=== PATIENT | female | born 1955 | race Hispanic/Latino ===

== ENCOUNTER 2018-05-27 15:06 | Outpatient (CLI) | payer MEDICARE, MEDICAID | END 2018-05-27 15:07 | disposition home or self-care (01) | LOC: BICMAMMO 15:06 | PROVIDERS: ATTEND Nurse Practitioner Family | DX: Z12.31 Encounter for screening mammogram for malignant neoplasm of breast (principal) | CPT/HCPCS: 77063; 77067 ==

== ENCOUNTER 2020-05-21 13:09 | Outpatient (CLI) | payer MEDICARE, MEDICAID ==
--- NOTE | 2020-05-21 14:06 | MMO ---
Bilateral MAMMO Bilat Screen [facility]. CLINICAL HISTORY: Patient is 64 years old and is seen for screening. The patient has no family history of breast cancer. The patient has no personal history of cancer. VIEWS: The views performed were: bilateral craniocaudal with tomosynthesis; bilateral mediolateral oblique; and bilateral mediolateral oblique with tomosynthesis. FILMS COMPARED: The present examination has been compared to prior imaging studies performed at [facility] on 04/13/2017 and 05/27/2018, and at [facility] on 12/20/2014 and 04/09/2016. This study has been interpreted with the assistance of computer-aided detection. MAMMOGRAM FINDINGS: There are scattered fibroglandular densities. There are stable benign appearing calcifications seen in both breasts. There are no suspicious masses, suspicious calcifications, or new areas of architectural distortion. IMPRESSION: THERE IS NO MAMMOGRAPHIC EVIDENCE OF MALIGNANCY. A ROUTINE FOLLOW-UP MAMMOGRAM IN 1 YEAR IS RECOMMENDED. THE RESULTS OF THIS EXAM WERE SENT TO THE PATIENT. ACR BI-RADS Category 2 - Benign finding MAMMOGRAPHY NOTE: 1. A negative mammogram report should not delay a biopsy if a dominant of clinically suspicious mass is present. 2. Approximately 10% to 15% of breast cancers are not detected by mammography. 3. Adenosis and dense breasts may obscure an underlying neoplasm. Reported by: JORDI PINEDA MD Electonically Signed: [id number]
== END 2020-05-21 13:10 | disposition home or self-care (01) ==
LOC: BICMAMMO 13:09
PROVIDERS: ATTEND Nurse Practitioner Family
DX: Z12.31 Encounter for screening mammogram for malignant neoplasm of breast (principal)
CPT/HCPCS: 77063; 77067

== ENCOUNTER 2022-04-16 08:50 | Outpatient (CLI) | payer MEDICARE, MEDICAID | END 2022-04-16 08:51 | disposition home or self-care (01) | LOC: BICULT 08:50 | PROVIDERS: ATTEND Internal Medicine Nephrology | DX: I12.9 Hypertensive chronic kidney disease with stage 1 through stage 4 chronic kidney disease, or unspecified chronic kidney disease (principal); N18.30 Chronic kidney disease, stage 3 unspecified | CPT/HCPCS: 76770; 93975 ==

== ENCOUNTER 2022-07-10 07:44 | Inpatient (IN) | payer MEDICAID, MEDICARE, OTHER ==
[2022-07-10] MEDS ORDERED: Azithromycin 500 MG VIAL ONE ×2 (08:29→08:32)
[2022-07-10 08:43] LABS: #Eosinphils 0.1 thou/uL (0.0-0.7); #Lymphocytes 1.1 thou/uL (1.20-3.40); #Monocytes 1.1 thou/uL (0.11-0.59); %Basophils 0.3 % (0.0-1.0); %Eosinophils 1.1 % (0.0-10.0); %Lymphocytes 10.7 % (21.0-51.0); %Monocytes 10.4 % (0.0-10.0); %Neutrophils 77.5 % (42.0-75.0); Hemoglobin 13.4 g/dL (12.0-16.0); Mean Corpuscular HGB CONC 32.9 g/dL (32.0-36.0); Mean Corpuscular Hemoglobin 29.6 pg (27.0-31.0); Mean Corpuscular Volume 89.9 fL (78.0-98.0); Mean Platelet Volume 8.5 fL (7.4-10.4); Platelet Count 208 thou/uL (130-400); RBC Distribution Width 13.7 % (11.5-14.5); Red Blood Cell (RBC) Count 4.53 mill/uL (4.20-5.40); White Blood Cell (WBC) Count 10.4 thou/uL (4.8-10.8)
[2022-07-10 09:05] LABS: ALT (SGPT) 12 U/L (8-55); AST (SGOT) 15 U/L (5-34); Albumin 4.3 g/dL (3.4-4.8); Alkaline Phosphatase 150 U/L (40-110); Anion Gap 17 mmol/L (10-20); BUN (Urea Nitrogen) 38 mg/dL (9.8-20.1); Bilirubin, Total 1.1 mg/dL (0.2-1.2); CK (CPK) 136 U/L (29-168); Calc. Creatinine Clearance 0 mL/min (70-130); Calcium 9.6 mg/dL (7.8-10.44); Carbon Dioxide 28 mmol/L (23-31); Chloride 97 mmol/L (98-107); Estimated GFR 21; Globulin 4.1 g/dL (2.4-3.5); Glucose 165 mg/dL (80-115); Potassium 4.3 mmol/L (3.5-5.1); Protein, Total 8.4 g/dL (5.8-8.1); Sodium 138 mmol/L (136-145)
[2022-07-10] MEDS ORDERED: cefTRIAXone\\ROCEPHIN 1 GM VIAL ONE (09:25)
[2022-07-10 09:27] LABS: CKMB 0.5 ng/mL (0-6.6)
[2022-07-10] MEDS ORDERED: Lorazepam 1 MG TAB ONE (10:01)
[2022-07-10] MEDS ORDERED: Aspirin Chewable 81 MG TAB ONE (10:01)
[2022-07-10] MEDS ORDERED: Lorazepam 0.5 MG TAB ONE (10:01)
[2022-07-10 10:16] LABS: SARS-CoV-2 NAA Rapid Test DETECTED (NotDetected)
[2022-07-10] MEDS ORDERED: Guaifenesin DM 100-10/5 ML UDCUP PO PRN (11:21)
[2022-07-10] MEDS ORDERED: Dextrose 50% Abboject 50 ML SYRINGE SLOW IVP PRN (11:21)
[2022-07-10] MEDS ORDERED: Senokot S 8.6-50 MG TAB PO PRN (11:21)
[2022-07-10] MEDS ORDERED: Dextrose 5% in Water 1,000 ML IV PRN (11:21)
[2022-07-10] MEDS ORDERED: NOREPINEPHRINE 8 MG/250 ML-D5W 250 ML ONE (11:58)
[2022-07-10 12:04] LABS: Troponin I 0.052 ng/mL (< 0.028)
[2022-07-10] MEDS ORDERED: NOREPINEPHRINE 8 MG/250 ML-D5W 250 ML IVPB SCH (12:15)
[2022-07-10] MEDS: Sodium Chloride 0.9% 1,000 ML IV SCH ×2 (14:54→22:31)
[2022-07-10 15:06] VITALS: BMI 31.7
[2022-07-10] MEDS: Gabapentin 300 MG CAP PO SCH ×2 (16:48→20:29)
[2022-07-10] MEDS: HumaLOG 300 UNITS/3 ML VIAL SC PRN (16:49)
[2022-07-10] MEDS: Acetaminophen 325 MG TAB PO PRN (20:29)
[2022-07-10] MEDS: Apixaban 5 MG TAB PO SCH (20:29)
[2022-07-10] MEDS: Carvedilol 3.125 MG TAB PO SCH (20:30)
[2022-07-11 04:02] LABS: Hemoglobin 11.8 g/dL (12.0-16.0); Mean Corpuscular Hemoglobin 30.7 pg (27.0-31.0); Mean Corpuscular Volume 93.1 fL (78.0-98.0); Mean Platelet Volume 8.3 fL (7.4-10.4); Platelet Count 166 thou/uL (130-400); RBC Distribution Width 13.7 % (11.5-14.5); Red Blood Cell (RBC) Count 3.84 mill/uL (4.20-5.40); White Blood Cell (WBC) Count 6.9 thou/uL (4.8-10.8)
[2022-07-11 04:30] LABS: ALT (SGPT) 9 U/L (8-55); AST (SGOT) 17 U/L (5-34); Albumin 3.5 g/dL (3.4-4.8); Alkaline Phosphatase 105 U/L (40-110); Anion Gap 15 mmol/L (10-20); BUN (Urea Nitrogen) 29 mg/dL (9.8-20.1); Bilirubin, Total 0.8 mg/dL (0.2-1.2); Calc. Creatinine Clearance 38 mL/min (70-130); Calcium 8.2 mg/dL (7.8-10.44); Carbon Dioxide 20 mmol/L (23-31); Chloride 107 mmol/L (98-107); Estimated GFR 29; Globulin 3.3 g/dL (2.4-3.5); Glucose 119 mg/dL (80-115); Protein, Total 6.8 g/dL (5.8-8.1); Sodium 138 mmol/L (136-145)
[2022-07-11 04:52] LABS: Band 5 % (5-11); Lymphocytes 21 % (21-51); MDiff Complete? YES; Metamyelocyte 1 % (0-0); Monocytes 12 % (0-10); Neutrophil 61 % (42-75)
[2022-07-11] MEDS: Levothyroxine Sodium 112 MCG TAB PO SCH (05:16)
[2022-07-11] MEDS: Acetaminophen 325 MG TAB PO PRN ×3 (05:16→22:26)
[2022-07-11] MEDS: Sodium Chloride 0.9% 1,000 ML IV SCH ×2 (07:59→16:07)
[2022-07-11] MEDS ORDERED: Dexamethasone 4 mg/ml Vial SLOW IVP SCH (09:00)
[2022-07-11] MEDS: Gabapentin 300 MG CAP PO SCH ×3 (09:07→22:25)
[2022-07-11] MEDS: Atorvastatin Calcium 40 MG TAB PO SCH (09:07)
[2022-07-11] MEDS: Amiodarone 200 MG TAB PO SCH (09:08)
[2022-07-11] MEDS: Aspirin 81 mg Enteric Coated Tablet PO SCH (09:08)
[2022-07-11] MEDS: Apixaban 5 MG TAB PO SCH ×2 (09:08→22:25)
[2022-07-11] MEDS: Clopidogrel Bisulfate 75 MG TAB PO SCH (09:08)
[2022-07-11] MEDS: Carvedilol 3.125 MG TAB PO SCH ×2 (09:09→22:26)
[2022-07-11] MEDS: HumaLOG 300 UNITS/3 ML VIAL SC PRN ×2 (12:25→22:26)
[2022-07-11] MEDS: Insulin Glargine 30 UNITS/0.3 ML VIAL SC SCH (22:23)
[2022-07-12] MEDS: Sodium Chloride 0.9% 1,000 ML IV SCH (00:14)
[2022-07-12 05:41] LABS: Anion Gap 16 mmol/L (10-20); BUN (Urea Nitrogen) 28 mg/dL (9.8-20.1); Calc. Creatinine Clearance 43 mL/min (70-130); Calcium 8.3 mg/dL (7.8-10.44); Carbon Dioxide 19 mmol/L (23-31); Chloride 107 mmol/L (98-107); Estimated GFR 29; Glucose 431 mg/dL (80-115); Potassium 4.5 mmol/L (3.5-5.1); Sodium 137 mmol/L (136-145)
[2022-07-12] MEDS: Levothyroxine Sodium 112 MCG TAB PO SCH (06:04)
[2022-07-12] MEDS: HumaLOG 300 UNITS/3 ML VIAL SC PRN ×4 (06:04→22:44)
[2022-07-12] MEDS: Carvedilol 6.25 MG TAB PO SCH ×2 (11:10→22:41)
[2022-07-12] MEDS: Amiodarone 200 MG TAB PO SCH (11:11)
[2022-07-12] MEDS: Atorvastatin Calcium 40 MG TAB PO SCH (11:11)
[2022-07-12] MEDS: Gabapentin 300 MG CAP PO SCH ×3 (11:11→22:41)
[2022-07-12] MEDS: Apixaban 5 MG TAB PO SCH ×2 (11:11→22:42)
[2022-07-12] MEDS: Clopidogrel Bisulfate 75 MG TAB PO SCH (11:11)
[2022-07-12] MEDS: Aspirin 81 mg Enteric Coated Tablet PO SCH (11:12)
[2022-07-12] MEDS: Insulin Glargine 30 UNITS/0.3 ML VIAL SC SCH ×2 (11:12→22:42)
[2022-07-12] MEDS: Fluticasone Propionate Nasal Spray 16 gm Bottle NASAL SCH (11:13)
[2022-07-12] MEDS: Loratadine 10 MG TAB PO SCH (11:21)
[2022-07-12] MEDS: Acetaminophen 325 MG TAB PO PRN ×2 (15:58→22:40)
[2022-07-12] MEDS ORDERED: Ondansetron PF 4 MG/2 ML Vial IVP PRN (17:38)
[2022-07-13 05:34] LABS: #Lymphocytes 1.7 thou/uL (1.20-3.40); #Monocytes 0.7 thou/uL (0.11-0.59); #Neutrophils 4.9 thou/uL (1.40-6.50); %Eosinophils 0.3 % (0.0-10.0); %Lymphocytes 22.8 % (21.0-51.0); %Monocytes 9.6 % (0.0-10.0); %Neutrophils 67.3 % (42.0-75.0); Hemoglobin 10.4 g/dL (12.0-16.0); Mean Corpuscular HGB CONC 32.3 g/dL (32.0-36.0); Mean Corpuscular Hemoglobin 29.9 pg (27.0-31.0); Mean Corpuscular Volume 92.3 fL (78.0-98.0); Mean Platelet Volume 8.9 fL (7.4-10.4); Platelet Count 159 thou/uL (130-400); RBC Distribution Width 13.7 % (11.5-14.5); White Blood Cell (WBC) Count 7.3 thou/uL (4.8-10.8)
[2022-07-13 05:59] LABS: Anion Gap 14 mmol/L (10-20); BUN (Urea Nitrogen) 30 mg/dL (9.8-20.1); CRP (Inflammatory) 6.32 mg/dL (= or < 0.5); Calc. Creatinine Clearance 49 mL/min (70-130); Calcium 8.2 mg/dL (7.8-10.44); Carbon Dioxide 20 mmol/L (23-31); Chloride 109 mmol/L (98-107); Estimated GFR 34; Glucose 207 mg/dL (80-115); Potassium 4.3 mmol/L (3.5-5.1); Sodium 139 mmol/L (136-145)
[2022-07-13] MEDS: Levothyroxine Sodium 112 MCG TAB PO SCH (06:30)
[2022-07-13] MEDS: HumaLOG 300 UNITS/3 ML VIAL SC PRN ×2 (06:31→11:45)
[2022-07-13] MEDS: Acetaminophen 325 MG TAB PO PRN (08:41)
[2022-07-13] MEDS: Gabapentin 300 MG CAP PO SCH (08:43)
[2022-07-13] MEDS: Clopidogrel Bisulfate 75 MG TAB PO SCH (08:44)
[2022-07-13] MEDS: Aspirin 81 mg Enteric Coated Tablet PO SCH (08:44)
[2022-07-13] MEDS: Loratadine 10 MG TAB PO SCH (08:44)
[2022-07-13] MEDS: Atorvastatin Calcium 40 MG TAB PO SCH (08:44)
[2022-07-13] MEDS: Carvedilol 6.25 MG TAB PO SCH ×2 (08:44→08:52)
[2022-07-13] MEDS: Apixaban 5 MG TAB PO SCH (08:45)
[2022-07-13] MEDS: Fluticasone Propionate Nasal Spray 16 gm Bottle NASAL SCH (08:45)
[2022-07-13] MEDS: Amiodarone 200 MG TAB PO SCH (08:45)
[2022-07-13] MEDS: Insulin Glargine 30 UNITS/0.3 ML VIAL SC SCH (08:46)
[2022-07-13 12:06] VITALS: BP 119/63; TEMP 97.4
== END 2022-07-13 13:35 | disposition home or self-care (01) | DRG 178 ==
LOC: ERS 07:44 → ERHOLD 10:42 → CCU 14:27 → NEURO 07-11 17:39
PROVIDERS: ADMIT Hospitalist; ATTEND Family Medicine
PROC: 8E0ZXY6 Isolation (ICD-10-PCS; principal; 2022-07-10)
PROC: 3E033XZ Introduction of Vasopressor into Peripheral Vein, Percutaneous Approach (ICD-10-PCS; 2022-07-10)
DX: U07.1 COVID-19 (principal); I13.0 Hypertensive heart and chronic kidney disease with heart failure and stage 1 through stage 4 chronic kidney disease, or unspecified chronic kidney disease; I50.22 Chronic systolic (congestive) heart failure; N17.9 Acute kidney failure, unspecified; I25.10 Atherosclerotic heart disease of native coronary artery without angina pectoris; I25.5 Ischemic cardiomyopathy; I48.0 Paroxysmal atrial fibrillation; E87.5 Hyperkalemia; E03.9 Hypothyroidism, unspecified; I48.91 Unspecified atrial fibrillation; E66.9 Obesity, unspecified; N18.30 Chronic kidney disease, stage 3 unspecified; E11.22 Type 2 diabetes mellitus with diabetic chronic kidney disease; R91.1 Solitary pulmonary nodule; R77.8 Other specified abnormalities of plasma proteins; I95.9 Hypotension, unspecified; E86.9 Volume depletion, unspecified; Z79.899 Other long term (current) drug therapy; Z79.02 Long term (current) use of antithrombotics/antiplatelets
CPT/HCPCS: 36415; 36416; 71045; 71250; 80048; 80053; 82550; 82553; 83605; 83880; 84443; 84484; 85025; 86140; 87040; 93005; 93306; 96361; 96365; 96366; 96367; J0456; J0696; J1100; J1815; J7050